=== PATIENT | male | born 1945 | race Caucasian/White ===

== ENCOUNTER 2017-10-12 06:42 | Outpatient (CLI) | payer MEDICARE, OTHER ==
--- NOTE | 2017-10-12 09:17 | RAD ---
BARIUM SWALLOW WITH ESOPHAGRAM: HISTORY: Morbid obesity. Dysphagia. EXPOSURE: 1.8 minutes. 97.96 uGy. FINDINGS: The patient was administered thick barium as well as thin barium. The patient was also administered a barium tablet. The cervical and thoracic esophagus have an overall normal course and caliber. There is some delay i n passage of oral contrast in the distal aspect of the esophagus. On the supine projection, there is retention of contrast suggesting esophageal dysmotility. Tertiary contractions are not appreciated. A standard barium tablet passed without difficulty. TECHNIQUE: Initial dietitian helper chest radiograph demonstrates a normal cardiac silhouette. No consolidation, pleural e ffusion, or pneumothorax. Barium esophagram was performed as detailed above. Post procedure image demonstrates moderate residu al contrast in the thoracic esophagus with the patient in the supine position. On the upright positi on, there appears to be contrast outlining the left mainstem bronchus. A component of aspiration can not be excluded. IMPRESSION: 1. Delayed passage of contrast from the esophagus suggesting esophageal dysmotility. 2. Outlining of the left mainstem bronchus on the post procedure upright image. The possibility of aspiration is raised. Modified barium swallow is recommended. POS: [facility]
== END 2017-10-12 06:43 | disposition home or self-care (01) ==
LOC: RAD 06:42
PROVIDERS: ATTEND Internal Medicine Gastroenterology
DX: R13.10 Dysphagia, unspecified (principal); E66.01 Morbid (severe) obesity due to excess calories
CPT/HCPCS: 74220